=== PATIENT | female | born 1975 | race Caucasian/White ===

== ENCOUNTER → 2017-12-08 11:57 | Outpatient (CLI) | payer BC, SELFPAY ==
--- NOTE | 2017-12-08 | DI.RAD.S_ITS ---
PROCEDURE: XR LUMBAR SPINE 2-3V INDICATIONS: LOW BACK PAIN, LUMBAR RADIUCUOPATHY TECHNIQUE: 3 views of the lumbar spine were acquired. COMPARISON: None. FINDINGS: Bones: 5 [id number] vertebrae are present. There is mild dextroconvex thoracolumbar curvature with normal bony alignment. No vertebral body compression fractures. No suspicious bony lesions. There is narrowing and marginal irregularity at the L5-S1 disc level. Soft tissues: Overlying bowel gas pattern is normal. There is a staghorn calculus in the left kidney with components in the renal pelvis as well as upper and lower pole infundibula and upper pole calyces. IMPRESSION: 1. No acute bony abnormality. 2. Degenerative disc disease L5-S1. 3. Staghorn calculus left kidney. Dictated by: Jean Agudelo M.D. on 12/08/2017 at 13:22 Approved by: Jean Agudelo M.D. on 12/08/2017 at 13:26
== END ==
PROVIDERS: Family Provider Family Medicine; PCP Family Medicine; Visit Provider Family Medicine
DX: M51.37 Other intervertebral disc degeneration, lumbosacral region (principal); N20.0 Calculus of kidney
CPT/HCPCS: 72100

== ENCOUNTER → 2017-12-13 08:12 | Outpatient (CLI) | payer BC, SELFPAY ==
--- NOTE | 2017-12-13 | DI.MRI.S_ITS ---
PROCEDURE: MR LUMBAR SPINE WO CON INDICATIONS: Lumbar radiculopathy TECHNIQUE: Noncontrast sagittal T1 spin echo and T2 fast echo, sagittal STIR, axial T1 and T2 fast spin echo through the lumbar spine. In cases with scoliosis, additional coronal T2 fast spin echo may be performed. COMPARISON: [facility], CR, XR LUMBAR SPINE 2-3V, 12/08/2017, 11:48. FINDINGS: Image quality: Excellent. Alignment and Curvature: There is normal bony alignment. Bone Marrow: Degenerative endplate signal changes in the inferior endplate of L5. No acute vertebral body compression fractures. Spinal Cord: Conus medullaris terminates at the L1 level. Visualized cord demonstrates normal signal and size. Paraspinous Soft Tissues: No paravertebral masses. Multiple left renal calculi are present. No hydronephrosis. L1-L2: Normal appearance. L2-L3: Normal appearance. L3-L4: Normal appearance. L4-L5: Preserved disc height. Moderate disc desiccation. There is mild posterior disc bulge. Mild bilateral facet arthropathy. The central canal is patent. No foraminal stenosis. L5-S1: Mild loss of disc height and moderate disc desiccation. There is diffuse posterior disc bulge and superimposed left posterior paramedian disc extrusion with the extruding disc measuring 8 mm anterior posterior x 6 mm transverse and 7 mm cephalocaudal. The disc is within the left lateral recess causing severe narrowing of the left lateral recess and impingement of the left S1 nerve root. Mild bilateral facet arthropathy. The central canal is minimally narrowed. No subarticular foraminal stenosis. IMPRESSION: 1. Degenerative disc disease in the lower lumbar spine as described. 2. There is a left posterior paramedian extruding disc measuring 8 x 6 x 7 mm within the left lateral recess, impinging the left S1 nerve root. 3. Minimal central canal stenosis at L5-S1. 4 No significant subarticular foraminal stenosis. 5. Multiple left renal calculi. Dictated by: Azael Mayfield M.D. on 12/13/2017 at 10:32 Approved by: Azael Mayfield M.D. on 12/13/2017 at 10:50
== END ==
PROVIDERS: Family Provider Family Medicine; PCP Family Medicine; Visit Provider Family Medicine
DX: M51.16 Intervertebral disc disorders with radiculopathy, lumbar region (principal); M48.061 Spinal stenosis, lumbar region without neurogenic claudication; N20.0 Calculus of kidney
CPT/HCPCS: 72148

== ENCOUNTER → 2018-01-21 09:58 | Outpatient (CLI) | payer BC, SELFPAY ==
--- NOTE | 2018-01-21 10:16 | DI.CT.S_ITS ---
PROCEDURE: CT ABDOMEN PELVIS WO/W CON INDICATIONS: Kidney stone and hematuria TECHNIQUE: Optional 5 mm thick noncontrast images acquired from the diaphragm to the symphysis pubis. After the administration of intravenous contrast, 5 mm thick images acquired from the diaphragm to the symphysis pubis after a 10-minute delay. 2 mm thick coronal and sagittal reformats were then performed of the kidneys and ureters. For radiation dose reduction, the following was used: automated exposure control, adjustment of mA and/or kV according to patient size. COMPARISON: None. FINDINGS: Image quality: Excellent. Lung bases: Lung bases are clear. Heart size is normal. Urinary system: Both kidneys are normal in size, without hydronephrosis on pre-contrast images. There are, however, bilateral urinary tract stones. On the right there are scattered punctate central collecting system calculi that measure approximately 3-4 mm in diameter. On the left there is a staghorn calculus that can be seen during the equivalent of plain film imaging, involving the upper, middle and lower thirds of the left renal collecting system, with radiodensity measured centrally within this large calculus of 1370 Hounsfield units. This extends through the renal pelvis to the upper margin of the left ureter. More inferiorly both ureters are normal in caliber and free of calculus. No perinephric fat stranding. There is normal bilateral renal enhancement. Renal calyces appear normal in morphology when filled with contrast. Opacified portions of both ureters demonstrate normal caliber. Bladder wall thickness is normal. No calcified bladder stones. Other solid organs: Liver is normal in size and enhancement. Gallbladder is normal. Biliary system is non dilated. Pancreas enhances normally. Spleen is normal in size and enhancement. No adrenal nodules. Peritoneum and bowel: Bowel loops demonstrate normal wall thickness and caliber. No free fluid or air. Nodes and vessels: No retroperitoneal or mesenteric adenopathy by size criteria. Aorta and inferior vena cava are normal in size. Abdominal wall: No ventral hernias. Pelvis: No pathologic free pelvic fluid. No inguinal hernias or adenopathy. Bones: No suspicious bony lesions. No vertebral body compression fractures. IMPRESSION: Several 3-4 mm central renal collecting system calculi on the right are not associated with urinary tract obstruction. There is a large staghorn calculus measuring up to 1370 Hounsfield units, involving the upper, middle and lower third collecting systems of the left kidney and extending to the upper margin of the left ureter. However, no hydronephrosis is associated. No bladder calculus or ureteral calculus is seen. Dictated by: Marcus Lara M.D. on 01/21/2018 at 11:45 Approved by: Marcus Lara M.D. on 01/21/2018 at 11:55
[2018-01-21 11:15] LABS: BUN Creatinine Ratio 17.5 (6-22); Blood Urea Nitrogen 14 mg/dL (7-17); Calcium 9.5 mg/dL (8.4-10.2); Carbon Dioxide 27 mmol/L (22-32); Chloride 107 mmol/L (98-107); Estimated Glomerular Filt Rate > 60.0 mL/min (>60); Glucose 77 mg/dL (70-100); HEMOLYSIS < 15 (0-50); Potassium 3.8 mmol/L (3.4-5.1); Sodium 144 mmol/L (137-145)
== END ==
PROVIDERS: Family Provider Family Medicine; PCP Family Medicine; Visit Provider Specialist
DX: N20.0 Calculus of kidney (principal); R31.9 Hematuria, unspecified
CPT/HCPCS: 36415; 74178; 80048; Q9967

== ENCOUNTER → 2018-02-11 11:24 | Outpatient (CLI) | payer BC, SELFPAY ==
--- NOTE | 2018-02-11 | DI.RAD.S_ITS ---
PROCEDURE: XR KUB INDICATIONS: KIDNEY STONES TECHNIQUE: One view of the abdomen acquired. COMPARISON: [facility], CT, CT ABDOMEN PELVIS WO/W CON, 01/21/2018, 10:11. FINDINGS: Surgical changes and devices: Left ureteral stent present. Bowel: Bowel gas pattern is normal. Soft tissues: There are 3 calcifications projected over the mid and lower pole of the left kidney measuring 1.4 cm, 1.3 cm in 0.9 cm. Bones: No suspicious bony lesions. IMPRESSION: 1. Left ureteral stent has been placed and there are multiple left renal calcifications largest measuring up to 1.4 cm. Dictated by: Mohan Solitario [facility] Interpreted: Marcus Lara MD on 02/11/2018 at 11:54 Approved by: Marcus Lara M.D. on 02/11/2018 at 13:32
== END ==
PROVIDERS: Family Provider Family Medicine; PCP Family Medicine; Visit Provider Specialist
DX: N20.0 Calculus of kidney (principal); Z96.0 Presence of urogenital implants
CPT/HCPCS: 74018

== ENCOUNTER 2018-02-21 22:29 | Emergency (ER) | payer BC, SELFPAY ==
[2018-02-21 22:30] VITALS: BP 87/58; PULSE 98; RESP 14; TEMP 37.3; O2SAT 99
[2018-02-21] MEDS: ONDANSETRON 4 MG ODT PO (22:38)
--- NOTE | 2018-02-21 23:30 | DI.RAD.S_ITS ---
PROCEDURE: XR KUB INDICATIONS: stent placement TECHNIQUE: One view of the abdomen acquired. COMPARISON: [facility], CR, XR INTRAOPERATIVE FLUORO GREATER THAN 1 HOUR, 02/21/2018, 10:15. [facility], CR, XR KUB, 02/11/2018, 11:18. FINDINGS: Surgical changes and devices: Left double-J ureteral stent in place. Bowel: Bowel gas pattern is normal. Soft tissues: A multiple calcifications in the left mid and lower kidney noted on last exam appear to be fragmented. There are tiny calcifications overlying the upper pole and lower pole of the right kidney. Visualized solid organ contours appear normal in size. Bones: No suspicious bony lesions. IMPRESSION: Bilateral nephrolithiasis status post left lithotripsy, stent in place. Dictated by: Jean Agudelo M.D. on 02/22/2018 at 7:59 Approved by: Jean Agudelo M.D. on 02/22/2018 at 8:01
--- NOTE | 2018-02-21 23:59 | ED.NAVMDI ---
HPI - Nausea/Vomiting/Diarrhea General Chief complaint: Nausea/Vomiting/Diarrhea Stated complaint: FEVER,NAUSEA,TINGLING OF LEG AND ARMS HAD Time Seen by Provider: 02/21/18 23:31 Source: patient Mode of arrival: ambulatory Limitations: no limitations History of Present Illness HPI Narrative: Patient is a 43-year-old female who presents with all left-sided flank pain. She had a stent placed for a large kidney stone which she had lithotripsy for today. She was given Percocet and antibiotics. However she was extremely nauseous and she vomited she did not get her antibiotics down. Her thought that she had a fever she was having shaking and chills home thermometer said 1002. She was able to keep all Percocet down prior to arrival and is afebrile here. MD complaint: nausea and vomiting Related Data Previous Rx's Medication Instructions Recorded ondansetron 4 mg PO Q6-8H PRN #10 tab 02/22/18 Allergies Allergy/AdvReac Type Severity Reaction Status Date / Time gabapentin Allergy Verified 02/21/18 22:34 hydrocodone [HYDROCODONE] AdvReac Mild NAUSEA Unverified 10/20/17 11:59 Review of Systems Review of Systems GENERAL: Denies chills, fatigue, malaise, fever, sweats, travel HEENT: Denies sinus pain, ear pain, sore throat, difficulty swallowing, neck pain RESPIRATORY: Denies dyspnea, cough, wheezing, hemoptysis, sputum. CARDIOVASCULAR: Denies chest pain, palpitations, orthopnea, edema GASTROINTESTINAL: Denies nausea, vomiting, abdominal pain, diarrhea, constipation, melena. : See HPI MUSCULOSKELETAL: Denies weakness, joint pain, or bony pain SKIN: No rash, no erythema, no pruritus NEUROLOGIC: Denies weakness, dizziness, headache, numbness, change in speech, confusion PSYCHIATRIC: No concerning psychosocial issues. 12 point review of systems is negative except for those stated above and HPI PFSH Medical History Kidney stones (Acute) Surgical History Status post vaginal hysterectomy (11/25/15) Exam Initial Vital Signs Initial Vital Signs: Vital Signs Temperature 99.1 F 02/21/18 22:30 Pulse Rate 98 H 02/21/18 22:30 Respiratory Rate 14 02/21/18 22:30 Blood Pressure 87/58 L 02/21/18 22:30 Pulse Oximetry 99 02/21/18 22:30 GENERAL: Well-appearing, well-nourished and in no acute distress. HEENT: Head atraumatic,EOMI, pupils reactive, CARDIOVASCULAR: Regular rate and rhythm without murmurs, rubs or gallops. RESPIRATORY: Breath sounds equal bilaterally, no wheezes rales or rhonchi. ABDOMEN: Soft, nontender. Normoactive bowel sounds all 4 quadrants. No guarding or rebound. : Mild left CVA tenderness EXTREMITIES: Normal range of motion, no clubbing or edema. Neurovascularly intact NEUROLOGICAL: Alert and oriented x4.Normal gait and speech. SKIN: Warm, dry, no laceration, no petechiae, no rashes or lesions. Course Orders Ordered: ED Orders 02/21/18 23:30 XR KUB Stat 02/22/18 00:01 Urinalysis and Microscopic Stat Urine Culture Stat Discontinued Medications Ketorolac Tromethamine (Toradol) 60 mg IM NOW ONE Stop: 02/21/18 23:31 Last Admin: 02/22/18 00:02 Dose: 60 mg Ondansetron HCl (Zofran Odt) 4 mg PO NOW ONE Stop: 02/21/18 22:38 Last Admin: 02/21/18 22:38 Dose: 4 mg Ondansetron HCl (Zofran Odt Prepack) 1 bottle MISC SEEINSTR ONE Stop: 02/22/18 00:32 Vital Signs - 8 hr 02/21/18 22:30 02/22/18 00:39 Temperature 99.1 F 98.1 F Pulse Rate 98 H 81 Respiratory Rate 14 16 Blood Pressure 87/58 L 98/64 Pulse Oximetry 99 100 MDM - Nausea/Vomiting/Diarrhea Lab Data Attestation: I reviewed the patient's lab results. Lab Results 02/22/18 Range/Units 00:01 Urine Color Dark yellow Urine Appearance Cloudy Urine pH 8.0 (4.5-8.0) Ur Specific Offerman 1.015 (1.000-1.035) Urine Protein 2+ H (Negative) Urine Glucose (UA) Negative (Normal) g/dL Urine Ketones 1+ H (NEGATIVE) Urine Occult Blood 3+ H (Negative) Urine Nitrate Negative (Negative) Urine Bilirubin Negative (NEGATIVE) Urine Urobilinogen 0.2 (0.2) E.U./dL Ur Leukocyte Esterase 3+ H (NEGATIVE) Urine RBC >100/hpf H (0-5/HPF) Urine WBC >100/hpf H (0-5/HPF) Ur Squamous Epith Cells 1-5 /hpf Urine Bacteria Many (>30) H (None) Ur Culture Indicated? Specimen cultured Micro UA Comment Not Reportable Imaging Data XR KUB: Attestation: I personally reviewed and interpreted this imaging study as follows: My impression: Stent in place MDM Narrative Medical decision making narrative: Patient is noted to have low blood pressure but he says that is normal for her. She is on antibiotics. Her urine does appear infected. His she overall does not seem septic or toxic. Educated both her and her and recommended close monitoring of fever in any worsening symptoms. Very important not to get infection. At this time recommend continuing her antibiotic which she is already taking. And to return if needed. Discharge Plan Departure Patient Disposition: Home, Self-Care Clinical Impression: Kidney stones Discharge Date/Time: 02/22/18 00:39 Interventions: ED Discharge Assessment Last Done: 02/22/18 00:39 Instructions: DI for Kidney Stones Activity Restrictions/Additional Instructions: *You have been diagnosed with kidney stone *What to do: Be sure to monitor for fever very carefully, stay hydrated *Continue to take medications as directed -Zofran every 6-8 hours if needed for nausea or vomiting -ibuprofen 600 mg every 6 hr if needed for mild pain, contact your urologist to be sure there is no contraindication *Follow up with your primary care provider in 2-3 days *Return to ER if you should have fever more than 100.4?, inability to keep fluids down, increasing pain or any new, worsening or concerning symptoms Prescriptions: New ondansetron 4 mg tablet,disintegrating 4 mg PO Q6-8H PRN (Reason: nausea and vomiting) Qty: 10 RF: 0 Referrals: Kana Vale MD [Physician] - Sheryl Fry MD [Primary Care Provider] -
[2018-02-22] MEDS: KETOROLAC 60 MG/2 ML VIAL IM (00:02)
--- NOTE | 2018-02-22 00:12 | PC.NURSE ---
lt ureter stent placed with lithotripsy this am, c/o lt flank pain and nausea, hematuria, reports voiding without issue, taking po fluids
[2018-02-22 00:16] LABS: Bilirubin Urine UA NEGATIVE (NEGATIVE); Glucose Urine UA NEGATIVE (Normal); Ketones Urine UA 1+ (NEGATIVE); Leukocyte Esterase Urine UA 3+ (NEGATIVE); Nitrite Urine UA Negative (Negative); Occult Blood Urine UA 3+ (Negative); Protein Urine UA 2+ (Negative); Specific Gravity Urine UA 1.015 (1.000-1.035); Urobilinogen Urine UA 0.2 E.U./dL (0.2)
[2018-02-22 00:17] LABS: Appearance Urine UA CLOUDY; Color Urine UA Dark Yellow; RBC Urine >100/HPF (0-5/HPF); Squamous Epithelial Cell Urine 1-5 /HPF; WBC Urine >100/HPF (0-5/HPF)
[2018-02-22 00:18] LABS: Bacteria Urine Many (>30); Culture Indicated Urine Specimen Cultured
[2018-02-22 00:39] VITALS: BP 98/64; PULSE 81; RESP 16; TEMP 36.7; O2SAT 100
--- NOTE | 2018-02-22 00:41 | PC.NURSE ---
zofran prepack given per MD order unable to scan into emar
== END 2018-02-22 00:39 | disposition home or self-care (01) ==
PROVIDERS: Emergency Provider Emergency Medicine; Family Provider Family Medicine; PCP Family Medicine
DX: N20.0 Calculus of kidney (principal)
CPT/HCPCS: 74018; 81001; 87086; 96372; 99282; 99284; J1885

== ENCOUNTER → 2018-03-21 14:14 | Outpatient (CLI) | payer BC, SELFPAY ==
--- NOTE | 2018-03-21 | DI.RAD.S_ITS ---
PROCEDURE: XR KUB INDICATIONS: KIDNEY STONES TECHNIQUE: One view of the abdomen acquired. COMPARISON: [facility], , XR KUB, 02/21/2018, 23:09. FINDINGS: Surgical changes and devices: Left-sided ureteral stent position is unchanged from previous study. Bowel: Bowel gas pattern is normal. Soft tissues: Previously described tiny calcifications in the upper and lower pole of right kidney are again seen and are not significantly changed. Fragmented calcifications are seen scattered in upper to mid pole of left kidney, not significantly changed from prior study. Visualized solid organ contours appear normal in size. Bones: No suspicious bony lesions. IMPRESSION: Bilateral renal calculi not significantly changed in size and appearance from previous study. Left ureteral stent in place. Dictated by: Keven Guzmán M.D. on 03/21/2018 at 15:24 Approved by: Keven Guzmán M.D. on 03/21/2018 at 15:27
== END ==
PROVIDERS: Family Provider Family Medicine; PCP Family Medicine; Visit Provider Specialist
DX: N20.0 Calculus of kidney (principal); Z96.0 Presence of urogenital implants
CPT/HCPCS: 74018

== ENCOUNTER → 2018-05-19 09:41 | Outpatient (CLI) | payer BC, SELFPAY ==
--- NOTE | 2018-05-19 | DI.CT.S_ITS ---
PROCEDURE: CT KIDNEY URETER BLADDER (KUB) INDICATIONS: KIDNEY STONES CHECK TECHNIQUE: Noncontrast 5 mm thick sections acquired from the diaphragms to the symphysis. 5 mm thick coronal and sagittal reformats were then performed. For radiation dose reduction, the following was used: automated exposure control, adjustment of mA and/or kV according to patient size. COMPARISON: [facility], CR, XR RETROGRADE UROGRAPHY, 05/02/2018, 8:26. [facility], CT, CT ABDOMEN PELVIS WO/W CON, 01/21/2018, 10:11. [facility], CR, XR ABDOMEN 1 VIEW, 05/02/2018, 6:28. FINDINGS: Image quality: Excellent. Lung bases: Lung bases are clear. Heart size is normal. Urinary system: Left ureterovesicular stent remains in place. There remains a punctate calcification within both the upper and mid poles on the left as well as a 5 mm calcification within the left lower pole Hounsfield units 645.. There are 5 punctate superior right renal pole calcifications. Four calcifications are identified in the inferior pole the largest measuring 3 mm. The largest calcification appears minimally increased in size, approximately 1 mm. While this could represent increase in size, appearance could be secondary to volume averaging. The left renal collecting system demonstrates a mild prominence. Bladder is distended. Other solid organs: Liver is normal in size. Gallbladder is unremarkable. Pancreas is normal in contours. Spleen is normal in size. No adrenal nodules. Peritoneum and bowel: Unenhanced bowel loops demonstrate normal wall thickness and caliber. No free fluid or air. Nodes and vessels: No retroperitoneal or mesenteric adenopathy by size criteria. Aorta and inferior vena cava are normal in caliber. Abdominal wall: No ventral hernias. Pelvis: No free pelvic fluid. No inguinal hernias or adenopathy. Bones: No suspicious bony lesions. No vertebral body compression fractures. IMPRESSION: 1. Mild prominence of the left renal collecting system with residual calculi and ureteral vesicular stent as above. 2. Relatively stable appearance of right renal calculi. The largest calcification is minimally increased in size versus volume averaging. Dictated by: Sully Singh M.D. on 05/19/2018 at 15:09 Approved by: Sully iSngh M.D. on 05/19/2018 at 16:24
== END ==
PROVIDERS: Family Provider Family Medicine; PCP Family Medicine; Visit Provider Specialist
DX: N20.0 Calculus of kidney (principal); Z96.0 Presence of urogenital implants
CPT/HCPCS: 74176

== ENCOUNTER → 2018-05-30 09:38 | Outpatient (CLI) | payer BC, SELFPAY ==
--- NOTE | 2018-05-30 | DI.RAD.S_ITS ---
PROCEDURE: XR KUB INDICATIONS: KIDNEY STONES TECHNIQUE: One view of the abdomen acquired. COMPARISON: [facility], CT, CT KIDNEY URETER BLADDER (KUB), 05/19/2018, 9:39. [facility], CR, XR KUB, 03/21/2018, 13:54. FINDINGS: Surgical changes and devices: Left ureteral stent is seen, in expected position. Bilateral nephrolithiasis, probably unchanged since prior CT dated 05/19/18. There are presumed pelvic phleboliths Bowel: Bowel gas pattern is normal. Bones: No suspicious bony lesions. IMPRESSION: Left ureteral stent as before. Bilateral nephrolithiasis with grossly unchanged appearance. Dictated by: Adolfo Adkins M.D. on 05/30/2018 at 11:23 Approved by: Adolfo Adkins M.D. on 05/30/2018 at 11:26
== END ==
PROVIDERS: PCP Family Medicine; Visit Provider Specialist
DX: N20.0 Calculus of kidney (principal); Z96.0 Presence of urogenital implants
CPT/HCPCS: 74018

== ENCOUNTER → 2018-07-07 15:16 | Outpatient (CLI) | payer BC, SELFPAY ==
--- NOTE | 2018-07-07 | DI.RAD.S_ITS ---
PROCEDURE: XR KUB INDICATIONS: KIDNEY STONES TECHNIQUE: One view of the abdomen acquired. COMPARISON: [facility], CR, XR KUB, 05/30/2018, 9:48. FINDINGS: Surgical changes and devices: None. Bowel: Bowel gas pattern is normal. Soft tissues: There are 3 small calcifications projected over the mid inferior pole of the right kidney largest measuring 2.0 mm. 2.4 mm calcification projects over the mid to lower pole of the left kidney. Several pelvic calcifications likely phleboliths.. Visualized solid organ contours appear normal in size. Bones: No suspicious bony lesions. IMPRESSION: Small bilateral renal calcifications. Dictated by: Mohan Solitario A Interpreted: Keven Guzmán MD on 07/07/2018 at 15:36 Approved by: Keven Guzmán M.D. on 07/07/2018 at 17:40
[2018-07-07 16:37] LABS: Calcium 9.9 mg/dL (8.4-10.2); Uric Acid 4.9 mg/dL (2.5-6.2)
[2018-07-09 12:29] LABS: Parathyroid Hormone Int 42 pg/mL (14-64)
== END ==
PROVIDERS: PCP Family Medicine; Visit Provider Specialist
DX: N20.0 Calculus of kidney (principal)
CPT/HCPCS: 36415; 74018; 82310; 83970; 84550

== ENCOUNTER → 2020-03-27 13:49 | Outpatient (CLI) | payer BC, SELFPAY ==
--- NOTE | 2020-03-27 13:50 | DI.RAD.S_ITS ---
PROCEDURE: XR KUB INDICATIONS: kidney stones TECHNIQUE: One view of the abdomen acquired. COMPARISON: [facility], CT, CT KIDNEY URETER BLADDER (KUB), 05/19/2018, 9:39. [facility], CR, XR KUB, 07/07/2018, 15:21. [facility], CR, XR KUB, 05/30/2018, 9:48. FINDINGS: Surgical changes and devices: None. Bowel: Bowel gas pattern is normal. Soft tissues: No new suspicious abdominal calcifications. There is a 1.2 mm calcification overlying the expected position of lower 3rd collecting system of the right kidney. Bowel content obscures clear visualization of the similar area on the left. Visualized solid organ contours appear normal in size. Bones: No suspicious bony lesions. IMPRESSION: Probable stable appearing stone measuring 1.2 mm at the lower 3rd collecting system area of the right kidney. The bowel content on the left in the same area obscures clear visualization of the expected position of the left kidney. Dictated by: Marcus Lara M.D. on 03/27/2020 at 16:03 Approved by: Marcus Lara M.D. on 03/27/2020 at 16:06
== END ==
PROVIDERS: Family Provider Family Medicine; PCP Family Medicine; Referring Provider Family Medicine; Visit Provider Specialist
DX: N20.0 Calculus of kidney (principal)
CPT/HCPCS: 74018

== ENCOUNTER → 2020-03-28 15:07 | Outpatient (CLI) | payer BC, SELFPAY ==
--- NOTE | 2020-03-28 15:14 | DI.RAD.S_ITS ---
PROCEDURE: XR CHEST 2V INDICATIONS: COUGH/SOB TECHNIQUE: 2 views of the chest were acquired. COMPARISON: None. FINDINGS: Surgical changes and devices: None. Lungs and pleura: Lungs are clear. No pleural effusions or pneumothorax. Mediastinum: Mediastinal contours are normal. Heart size is normal. Bones and chest wall: No suspicious bony abnormalities. Soft tissues appear unremarkable. IMPRESSION: No pneumonia found, no mass lesion identified. Lung volumes are relatively large but this is in the range of normal variation with aggressive inspiratory effort. Dictated by: Marcus Lara M.D. on 03/28/2020 at 16:15 Approved by: Marcus Lara M.D. on 03/28/2020 at 16:15
== END ==
PROVIDERS: Family Provider Family Medicine; PCP Family Medicine; Referring Provider Family Medicine; Visit Provider Family Medicine
DX: R05 Cough (principal); R06.02 Shortness of breath
CPT/HCPCS: 71046